=== PATIENT | male | born 1945 | race Caucasian/White ===

== ENCOUNTER 2017-03-26 18:57 | Emergency (ER) | payer BC, MEDICARE ==
[2017-03-26] MEDS ORDERED: MECLIZINE 25 MG TABLET PO ONE (19:12)
[2017-03-26] MEDS ORDERED: ASPIRIN 81 MG CHEWABLE TABLET PO ONE (19:12)
--- NOTE | 2017-03-26 19:17 | Emergency Department Record ---
History of Present Illness - General Chief Complaint: Chest Pain Stated Complaint: DIZZINES,PAIN BETWEEN SHOULDER BLADES Time Seen by Provider: 03/26/17 19:12 Source: Patient Mode of Arrival: Wheelchair Limitations: No limitations - History of Present Illness Initial Comments: 72 yo male presents to ED for evaluation of dizzyness and chest pain symptoms radiating to the shoulder blades and neck that has been intermittent since this morning. Patient reports fatigue and nonproductive cough symptoms, denies fever. Patient reports previous VT that he was unaware of at the time. MD Complaint: Chest pain Onset/Timin -: Days(s) Onset: During exertion Pain Location: Substernal Pain Radiation: Back, Neck Severity: Moderate Quality: Aching Consistency: Intermittent Improves With: Rest Worsens With: Exertion Treatments Prior to Arrival: None - Related Data Home Medications Medication Instructions Recorded Confirmed Last Taken Aspirin Chewable 81 mg PO DAILY 03/26/17 03/26/17 Unknown Carvedilol [Coreg] 6.25 mg PO DAILY 03/26/17 03/26/17 Unknown Digoxin [Digox] 250 mcg PO DAILY 03/26/17 03/26/17 Unknown Fluoxetine HCl [Prozac] 20 mg PO DAILY 03/26/17 03/26/17 Unknown Lisinopril [Prinivil] 10 mg PO DAILY 03/26/17 03/26/17 Unknown [place]-3 Fatty Acids/Fish Oil [Fish 3 each PO DAILY 03/26/17 03/26/17 Unknown Oil 1,000 mg Capsule] Pravastatin Sodium [Pravachol] 10 mg PO DAILY 03/26/17 03/26/17 Unknown Tamsulosin HCl [Flomax] 0.4 mg PO DAILY 03/26/17 03/26/17 Unknown Allergies Allergy/AdvReac Type Severity Reaction Status Date / Time No Known Drug Allergies Allergy Unknown Unverified 06/08/13 10:05 [NO KNOWN DRUG ALLERGIES] Review of Systems Constitutional: Denies: Chills, Fever, Malaise, Night sweats Eyes: Denies: Eye discharge, Eye pain ENT: Denies: Congestion, Ear pain, Epistaxis Respiratory: Denies: Cough, Dyspnea Cardiovascular: Reports: Chest pain. Denies: Dyspnea on exertion, Edema, Palpitations Endocrine: Reports: Fatigue. Denies: Heat or cold intolerance Gastrointestinal: Denies: Nausea, Vomiting Genitourinary: Denies: Incontinence, Retention Musculoskeletal: Denies: Arthralgia, Back pain, Gout, Joint swelling Skin: Denies: Bruising, Change in color Neurological: Denies: Abnormal gait, Confusion, Headache, Tingling Psychiatric: Denies: Anxiety Hematological/Lymphatic: Denies: Anemia, Blood Clots Physical Exam - General General Appearance: Alert, Oriented x3, Cooperative, Mild distress Limitations: No limitations - Head Head exam: Atraumatic, Normocephalic, Normal inspection Head exam detail: negative: Abrasion, Contusion, Palmer's sign, General tenderness, Hematoma, Laceration - Eye Eye exam: Normal appearance. negative: Conjunctival injection, Periorbital swelling, Periorbital tenderness, Scleral icterus - ENT Ear exam: negative: Auricular hematoma, Auricular trauma Nasal Exam: negative: Active bleeding, Discharge, Dried blood Mouth exam: negative: Drooling, Laceration, Tongue elevation - Neck Neck exam: Normal inspection. negative: Meningismus, Tenderness - Respiratory Respiratory exam: Normal lung sounds bilaterally. negative: Respiratory distress, Rhonchi, Stridor, Wheezes - Cardiovascular Cardiovascular Exam: Regular rate, Normal rhythm, Normal heart sounds - GI/Abdominal GI/Abdominal exam: Soft. negative: Rebound, Rigid, Tenderness - Rectal Rectal exam: Deferred - exam: Deferred - Extremities Extremities exam: Normal inspection. negative: Pedal edema, Tenderness - Back Back exam: Reports: Normal inspection. Denies: CVA tenderness (R), CVA tenderness (L) - Neurological Neurological exam: Alert, Oriented X3. negative: Motor sensory deficit - Psychiatric Psychiatric exam: Normal affect, Normal mood - Skin Skin exam: negative: Abrasion Type of lesion: negative: abrasion Course - Reevaluation(s) Reevaluation #1: 03/26/17 19:17 EKG: NSR 85 LAD, normal intervals Q waves II, III, AVF, no acute ST-T wave changes Reevaluation #2: 03/26/17 19:52 Labs reviewed and are grossly unremarkable for an acute process except for subtherapeutic digoxin level. Reevaluation #3: 03/26/17 20:58 CTA Chest: Suggestion of a non-occlusive PE LLL arterial branch. Mass 3.1 x 3.3 cm consistent with neoplasm. Reevaluation #4: 03/26/17 21:09 Lovenox ordered to initiate treatment for PE, Melissa 1-call contacted for transfer. 03/26/17 21:22 Case was discussed with Dr. Cardona, will accept admission for further evaluation. Medical Decision Making - Lab Data Result diagrams: 03/26/17 19:11 03/26/17 19:11 Disposition Disposition: Transfer Clinical Impression: Renal mass, Vertigo Pulmonary embolus Qualifiers: Pulmonary embolism type: other Chronicity: acute Acute cor pulmonale presence: without acute cor pulmonale Qualified Code(s): I26.99 - Other pulmonary embolism without acute cor pulmonale Chest pain Qualifiers: Chest pain type: unspecified Qualified Code(s): R07.9 - Chest pain, unspecified Disposition: Acute Care Hospital Transfer Transfer To: [facility] Reason For Transfer: Chest pain, possible PE, renal mass Accepting Physician: Brendan Time Discussed w/Accepting Physician: 21:23 Condition: (2) Stable Forms: Patient Portal Access Time of Disposition: 21:23 Quality - Quality Measures Quality Measures: N/A - Blood Pressure Screening Does Patient Have Any of the Following: No Blood Pressure Classification: Hypertensive Reading Systolic Measurement: 167 Diastolic Measurement: 104 Screening for High Blood Pressure: < First Hypertensive BP, F/U Documented > [ G8950] First Hypertensive Follow-up Interventions: Referral to alternative/primary care provider.
[2017-03-26] MEDS: NITROGLYCERIN 0.4MG SL TABLET #25 BTL SL PRN ×3 (19:20→19:31)
[2017-03-26 19:21] LABS: BASO % 0.8 % (0-6); EOS % 2.9 % (0-6); GRAN % 68.6 % (47-80); HEMATOCRIT 48.6 % (42.0-52.0); HEMOGLOBIN 16.5 gm/dl (14.0-18.0); LYMPH % 17.9 % (16-45); MEAN CELL VOLUME 86.6 fl (81-97); MEAN CORPUSCULAR HEMOGLOBIN 29.4 pg (27-33); MEAN PLATELET VOLUME 9.7 fl (7.4-10.4); MONO % 9.8 % (0-9); PLATELET COUNT 238 K/uL (130-400); RED BLOOD COUNT 5.61 M/uL (4.40-5.70); RED CELL DISTRIBUTION WIDTH 14.9 % (11.5-14.5); WHITE BLOOD COUNT W/O DIFF 7.3 K/uL (4.2-12.2)
[2017-03-26 19:40] LABS: ALB/GLOB RATIO 1.3 (1.1-1.8); ALBUMIN 4.6 g/dL (4.0-5.0); ALKALINE PHOSPHATASE 64 U/L (40-129); ALT/SGPT 25 U/L (<41); AST/SGOT 18 U/L (10.0-50.0); BLOOD UREA NITROGEN 12 mg/dL (8-23); CREATININE 0.6 mg/dL (0.7-1.2); DIGOXIN 0.4 ng/mL (0.8-2.0); EST GLOMERULAR FILTRATION RATE > 60 mL/min; GLUCOSE,RANDOM 111 mg/dL (74-109); TOTAL PROTEIN 8.2 g/dL (6.6-8.7)
[2017-03-26] MEDS ORDERED: DIAZEPAM 5MG/ML **10ML VIAL IVP ONE (20:00)
[2017-03-26] MEDS ORDERED: APIXABAN 5MG TABLET PO ONE (21:09)
[2017-03-26] MEDS ORDERED: ENOXAPARIN 100 MG/ML SYR SQ ONE (21:20)
--- NOTE | 2017-03-27 15:15 | RADIOLOGY REPORT ---
EXAM: CHEST, TWO VIEWS HISTORY: DIFFICULTY IN BREATHING. TECHNIQUE: Frontal and lateral views of the chest were performed. FINDINGS: The heart size is normal. The lung pollack are clear. The osseous structures are normal. IMPRESSION: NEGATIVE CHEST EXAMINATION. JOB NUMBER: [id number] MTDD
--- NOTE | 2017-03-28 07:19 | CT ANGIOGRAM REPORT ---
EXAM: CTA OF THE CHEST WITH CONTRAST HISTORY: DIFFICULTY BREATHING. TECHNIQUE: CTA of the chest was performed after intravenous administration of 80 ml of Omnipaque 350 contrast material. Sagittal and coronal MIP images were performed on an independent workstation. FINDINGS: There is an equivocal nonocclusive pulmonary embolus in the segmental branch of the left lower lobar arterial arteries. No additional filling defects are appreciated. There is ectasia of the thoracic aorta. No infiltrate or pleural effusion. There is a benign appearing cyst in the superior pole of the left kidney. Partially visualized is a soft tissue mass in the left kidney measuring 3.1 cm x 3.3 cm. Neoplasm is suspected. IMPRESSION: 1. FINDINGS SUSPICIOUS FOR NONOCCLUSIVE PULMONARY EMBOLISM IN THE LEFT LOWER LOBE ARTERIAL BRANCH. 2. 3.1 X 3.3 CM SUSPICIOUS MASS IN THE SUPERIOR POLE OF THE LEFT KIDNEY. JOB NUMBER: [id number] MTDD
== END 2017-03-26 22:21 | disposition short-term general hospital (02) ==
LOC: ER 18:57
DX: I26.99 Other pulmonary embolism without acute cor pulmonale (principal); R42 Dizziness and giddiness; R07.9 Chest pain, unspecified; I10 Essential (primary) hypertension; I25.2 Old myocardial infarction; Z87.891 Personal history of nicotine dependence
CPT/HCPCS: 99285 ×2; 96374; 96372; 85025; 80053; 84484; 80162; 85379; 71046; 71275; 93005; 93010; Q9967; J3360; J1650

== ENCOUNTER 2018-05-10 08:42 | Emergency (ER) | payer MEDICARE ==
--- NOTE | 2018-05-10 09:10 | Emergency Department Record ---
History of Present Illness - General Chief complaint: ENT Stated complaint: SORE THROAT,COUGH,CONGESTION Time Seen by Provider: 05/10/18 09:07 Source: Patient, RN notes reviewed Mode of Arrival: Ambulatory - History of Present Illness Initial comments: three days of cough and sore throat and congestion. Generally goes to the CT clinic in [place]. had the same thing but going away on its own and she had three days longer. He has heart problems tachycardia PMH cancer left kidney Dec 2017 and no chemotherapy or radiation therapy. Stopped smoking 20 years ago when he started to have heart problems. MD complaint: Sore throat Onset/Timin -: Days(s) Severity: Moderate Severity scale (1-10): 8 Quality: Other Consistency: Constant Improves with: None Worsens with: Swallowing Associated Symptoms: Cough, Sore throat - Related Data Home Medications Medication Instructions Recorded Confirmed Last Taken Pantoprazole Sodium [Protonix] 20 mg PO DAILY 05/10/18 05/10/18 05/10/18 Previous Rx's Medication Instructions Recorded Azithromycin 250 mg PO DAILY #6 tablet 05/10/18 Allergies Allergy/AdvReac Type Severity Reaction Status Date / Time No Known Drug Allergies Allergy Unknown Verified 05/10/18 08:45 [NO KNOWN DRUG ALLERGIES] Travel Screening - Travel/Exposure Within Last 30 Days Have you traveled within the last 30 days?: No - Travel/Exposure Within Last Year Have you traveled outside the [place] in the last year?: No - Additonal Travel Details Have you been exposed to anyone with a communicable illness?: No - Travel Symptoms Symptom Screening: None Review of Systems Reviewed: No additional complaints except as noted below Constitutional: Reports: As per HPI. Denies: Chills, Fever, Malaise, Night sweats, Weakness, Weight change Eyes: Reports: As per HPI. Denies: Eye discharge, Eye pain, Photophobia, Vision change ENT: Reports: As per HPI, Throat pain. Denies: Dental pain, Ear pain, Epistaxis , Hearing loss Respiratory: Reports: As per HPI, Cough. Denies: Dyspnea, Hemoptysis, Stridor, Wheezes Cardiovascular: Reports: As per HPI. Denies: Arrhythmia, Chest pain, Dyspnea on exertion, Edema, Murmurs, Orthopnea, Palpitations, Paroxysmal nocturnal dyspnea, Rheumatic Fever, Syncope Endocrine: Reports: As per HPI. Denies: Fatigue, Heat or cold intolerance, Polydipsia, Polyuria Gastrointestinal: Reports: As per HPI. Denies: Abdominal pain, Constipation, Diarrhea, Hematemesis, Hematochezia, Melena, Nausea, Vomiting Genitourinary: Reports: As per HPI. Denies: Dysuria, Frequency, Hematuria, Incontinence, Retention, Testicular pain, Testicular mass, Urgency Musculoskeletal: Reports: As per HPI. Denies: Arthralgia, Back pain, Gout, Joint swelling, Myalgia, Neck pain Skin: Reports: As per HPI. Denies: Bruising, Change in color, Change in hair/ nails, Lesions, Pruritus, Rash Neurological: Reports: As per HPI. Denies: Abnormal gait, Confusion, Headache, Numbness, Paresthesias, Seizure, Tingling, Tremors, Vertigo, Weakness Psychiatric: Reports: As per HPI. Denies: Anxiety, Auditory hallucinations, Depression, Homicidal thoughts, Suicidal thoughts, Visual hallucinations Hematological/Lymphatic: Reports: As per HPI. Denies: Anemia, Blood Clots, Easy bleeding, Easy bruising, Swollen glands Past Medical History - SOCIAL HISTORY Smoking Status: Former smoker Alcohol Use: Rare Drug Use: None - RESPIRATORY Hx Respiratory Disorders: Yes Hx Sleep Apnea: Yes Hx of CPAP: Yes - CARDIOVASCULAR Hx Cardio Disorders: Yes Hx Heart Attack: Yes Hx Hypertension: Yes Hx Irregular Heartbeat: Yes - NEURO Hx Neuro Disorders: No - GI Hx GI Disorders: No - Hx Genitourinary Disorders: Yes Hx Prostate Problems: Yes - ENDOCRINE Hx Endocrine Disorders: No - MUSCULOSKELETAL Hx Musculoskeletal Disorders: No - PSYCH Hx Psych Problems: Yes Hx Anxiety: Yes Hx Depression: Yes (PTSD) - HEMATOLOGY/ONCOLOGY Hx Hematology/Oncology Disorders: Yes Hx Cancer: Yes Hx Chemotherapy: No Hx Radiation Therapy: No Comment:: see above surgeries. Family Medical History Any Significant Family History?: Yes *Diabetes Comment: Aunt Hx Heart Disease: Mother Hx HTN: Mother Physical Exam - General General Appearance: Alert, Oriented x3, Cooperative, No acute distress - Head Head exam: Normal inspection - Eye Eye exam: Normal appearance, PERRL Pupils: Normal accommodation - ENT ENT exam: Normal exam, Mucous membranes moist, Normal external ear exam, Normal orophraynx, TM's normal bilaterally Ear exam: Normal external inspection. negative: External canal tenderness Nasal Exam: Normal inspection. negative: Discharge, Sinus tenderness Mouth exam: Normal external inspection, Tongue normal Teeth exam: Normal inspection. negative: Dental caries Throat exam: Normal inspection. negative: Tonsillar erythema, Tonsillar exudate - Neck Neck exam: Normal inspection, Full ROM. negative: Tenderness - Respiratory Respiratory exam: Normal lung sounds bilaterally. negative: Respiratory distress - Cardiovascular Cardiovascular Exam: Regular rate, Normal rhythm, Normal heart sounds - GI/Abdominal GI/Abdominal exam: Soft, Normal bowel sounds. negative: Tenderness - Rectal Rectal exam: Deferred - exam: Deferred - Extremities Extremities exam: Normal inspection, Full ROM, Normal capillary refill. negative: Tenderness - Back Back exam: Reports: Normal inspection, Full ROM. Denies: Muscle spasm, Rash noted, Tenderness - Neurological Neurological exam: Alert, Normal gait, Oriented X3, Reflexes normal - Psychiatric Psychiatric exam: Normal affect, Normal mood - Skin Skin exam: Dry, Intact, Normal color, Warm Course Vital Signs 05/10/18 08:49 Temperature 98.4 F Pulse Rate 98 H Respiratory 18 Rate Blood Pressure 128/84 Pulse Ox 99 Medical Decision Making - Data Complexity MDM Data: Labs Ordered and/or Reviewed (strep and flu negative) Disposition Clinical Impression: Bronchitis Disposition: Home, Self-Care Condition: (1) Good Instructions: Acute Bronchitis (ED) Additional Instructions: folloow up with Primary Dr in 4 days sooner if worse or return to ED Prescriptions: Azithromycin 250 mg PO DAILY #6 tablet Forms: Patient Portal Access Time of Disposition: 09:26 Quality - Quality Measures Quality Measures: N/A - Blood Pressure Screening Does Patient Have Any of the Following: No Blood Pressure Classification: Pre-Hypertensive BP Reading Systolic Measurement: 128 Diastolic Measurement: 84 Screening for High Blood Pressure: < Pre-Hypertensive BP, F/U Documented > [ G8950] Pre-Hypertensive Follow-up Interventions: Referral to alternative/primary care provider.
[2018-05-10 09:29] LABS: INFLUENZA A NEGATIVE (NEGATIVE); INFLUENZA B NEGATIVE (NEGATIVE); STREP A SCREEN NEGATIVE (NEGATIVE)
== END 2018-05-10 10:10 | disposition home or self-care (01) ==
LOC: ER 08:42
DX: J20.9 Acute bronchitis, unspecified (principal); I10 Essential (primary) hypertension; I25.2 Old myocardial infarction; Z87.891 Personal history of nicotine dependence
CPT/HCPCS: 87400; 87880; 99282; 99283